=== PATIENT | male | born 1930 | race Caucasian/White ===

== ENCOUNTER 2021-02-01 12:08 | Emergency (ER) | payer MEDICARE ==
[~2021-02-01] VITALS: Ht 170.2 cm; Wt 70.0 kg
[2021-02-01] MEDS ORDERED: AMIO100T4 PO (12:32)
[2021-02-01 12:50] LABS: BASO # 0.1 x10^3/uL (0.0-0.2); BASO % 1 % (0-3); EOS # 0.3 x10^3/uL (0.0-0.7); EOS % 3 % (0-3); HEMATOCRIT 41.3 % (39.0-53.0); HEMOGLOBIN 13.8 g/dL (13.0-17.5); LYMPH # 1.4 x10^3/uL (1.0-4.8); LYMPH % 15 % (24-48); MEAN CORPUSCULAR HEMOGLOBIN 32 pg (25-35); MEAN CORPUSCULAR HGB CONC 33 g/dL (31-37); MEAN CORPUSCULAR VOLUME 96 fL (79-100); MONO # 1.1 x10^3/uL (0.0-1.1); MONO % 11 % (0-9); NEUT # 6.7 x10^3uL (1.8-7.7); NEUT % 70 % (31-73); PLATELET COUNT 193 x10^3/uL (140-400); RED BLOOD COUNT 4.29 x10^6/uL (4.30-5.70); RED CELL DISTRIBUTION WIDTH 18.5 % (11.5-14.5); WHITE BLOOD COUNT 9.5 x10^3/uL (4.0-11.0)
--- NOTE | 2021-02-01 12:55 | PHYS DOC ---
Past History Past Medical History: A-Fib, GERD, High Cholesterol, Hypertension, Renal Failure, Vascular Disease, Other Additional Past Medical Histor: Pulmonary hypotension, Nstemi, CHF, CAD, benigh prostatic hyperplasia, Alcohol Use: None General Adult EDM: Chief Complaint: CHEST PAIN HPI: HPI: Patient is a 89-year-old male presents with chest pain started at 9 PM last night while he was sitting in his chair watching TV. Patient reports the pain was an achy, pain in the middle of his chest. Patient denies radiation. Patient denies nausea/vomiting, dizziness, fever, shortness of breath, cough. Patient states that the chest pain was intermittent until 9 AM this morning. Patient states "my home health nurse came in when I told her about my symptoms she called an ambulance even though my chest pain had resolved". Patient was given 324 of aspirin with EMS. Denies taking anything for pain at home. Patient reports he had an VT in July and started dialysis 2 months ago after a separate hospitalization in October. Patient denies all symptoms at this time. Patient has history of A. fib, hypertension, renal failure, GERD, VT. Review of Systems: Review of Systems: Constitutional: Denies fever or chills Eyes: Denies change in visual acuity HENT: Denies nasal congestion or sore throat Respiratory: Denies cough or shortness of breath Cardiovascular: Denies chest pain or edema GI: Denies abdominal pain, nausea, vomiting, bloody stools or diarrhea : Denies dysuria Musculoskeletal: Denies back pain or joint pain Integument: Denies rash Neurologic: Denies headache, focal weakness or sensory changes Endocrine: Denies polyuria or polydipsia Lymphatic: Denies swollen glands Psychiatric: Denies depression or anxiety Allergies: Allergies: Allergies Coded Allergies Type Severity Reaction Last Updated Verified allopurinol Allergy Unknown 02/01/21 Yes hydrocodone Allergy Unknown 02/01/21 Yes niacin Allergy Unknown 02/01/21 Yes Physical Exam: PE: Constitutional: Well developed, well nourished, no acute distress, non-toxic appearance. HENT: Normocephalic, bilateral external ears normal, oropharynx moist Eyes: PERRLA, conjunctiva normal, no discharge. Neck: Normal range of motion, no tenderness, supple, no stridor. Cardiovascular:Heart rate regular rhythm, no murmur Lungs & Thorax: Bilateral breath sounds clear to auscultation Abdomen: Bowel sounds normal, soft, no tenderness Skin: Warm, dry, no erythema, no rash. Back: No tenderness, no CVA tenderness. Extremities: No tenderness, no cyanosis, no clubbing, ROM intact, no edema. Neurologic: Alert and oriented X 3, normal motor function, normal sensory f unction, no focal deficits noted. Psychologic: Affect normal, judgement normal, mood normal. Current Patient Data: Vital Signs: Vital Signs Date Time Temp Pulse Resp B/P (MAP) Pulse Ox O2 Delivery O2 Flow Rate FiO2 02/01/21 12:13 97.6 83 13 93 Room Air EKG: EKG: [] Radiology/Procedures: Radiology/Procedures: []Single AP view of the chest. Comparison: None. Indication: Chest pain Findings: Right internal jugular hemodialysis catheter seen with tip in the right atrium. The heart is enlarged. There is no pneumothorax or effusion. There is mild pulmonary vascular congestion. Impression: 1. Cardiomegaly with mild pulmonary vascular congestion. Electronically signed by: Pepe Arellano MD (02/01/2021 12:59 PM) [id number] Heart Score: C/O Chest Pain: Yes HEART Score for Chest Pain: HEART Score for Chest Pain Response (Comments) Value History Highly Suspicious 2 ECG Normal 0 Age > 65 2 Risk Factors >3 Risk Factors or Hx CAD 2 Troponin < Normal Limit 0 Total 6 Risk Factors: Risk Factors: DM, Current or recent (<one month) smoker, HTN, HLP, family history of CAD, obesity. Risk Scores: Score 0 - 3: 2.5% MACE over next 6 weeks - Discharge Home Score 4 - 6: 20.3% MACE over next 6 weeks - Admit for Clinical Observation Score 7 - 10: 72.7% MACE over next 6 weeks - Early Invasive Strategies Course & Med Decision Making: Course & Med Decision Making Pertinent Labs and Imaging studies reviewed. (See chart for details) [] 89-year-old male presents with mid, sternal, chest pain that started at 9 PM last night. Pain was intermittent until 9 AM this morning. Patient denied dizziness, shortness of breath, nausea/vomiting at the time of symptoms. Patient was given 324 of aspirin with EMS. Patient denies all symptoms at this time. Patient had an VT in July, and was started on dialysis in October. Troponin is negative. Heart score of 6. Creatinine 2.5, patient receives dialysis on Friday, Friday, Friday. BNP was 1308. Chest x-ray shows cardiomegaly with mild pulmonary vascular congestion. Spoke with who will accept patient at [facility] for chest pain. Cardiology and nephrology will be consulted. Prior to admission patient decided he did not want to stay in the hospital. I spoke with patient extensively about risk of going home and benefit of admission. Patient is still refusing to be admitted and wants to sign AMA paperwork. Dr. Rojas also spoke with patient prior to him leaving AMA and patient is unwilling to stay in the hospital for further evaluation. Patient is alert and oriented and hemodynamically stable. Dragon Disclaimer: Dragon Disclaimer: This electronic medical record was generated, in whole or in part, using a voice recognition dictation system. Departure Departure: Impression: Primary Impression: Chest pain Qualified Codes: R07.89 - Other chest pain Additional Impression: Presence of cardiac pacemaker Disposition: LEFT AGAINST MEDICAL ADVICE Admitting Physician: Jose Mcfadden Condition: STABLE MICHAEL ARANGO [employer] OPERATOR Feb 01, 2021 12:55
--- NOTE | 2021-02-01 13:02 | RAD ---
Single AP view of the chest. Comparison: None. Indication: Chest pain Findings: Right internal jugular hemodialysis catheter seen with tip in the right atrium. The heart is enlarged . There is no pneumothorax or effusion. There is mild pulmonary vascular congestion. Impression: 1. Cardiomegaly with mild pulmonary vascular congestion. Electronically signed by: Pepe Arellano MD (02/01/2021 12:59 PM) [id number]
[2021-02-01 13:15] LABS: CALCIUM 9.1 mg/dL (8.5-10.1); CREATININE 2.5 mg/dL (0.7-1.3); GFR 24.5; POTASSIUM 4.5 mmol/L (3.5-5.1)
[2021-02-01 13:31] LABS: ALBUMIN 3.4 g/dL (3.4-5.0); MAGNESIUM 1.8 mg/dL (1.8-2.4); TOTAL BILIRUBIN 0.5 mg/dL (0.2-1.0); TOTAL PROTEIN 6.8 g/dL (6.4-8.2)
[2021-02-01 14:30] VITALS: BP 132/62
[2021-02-01 15:26] LABS: PLT ESTIMATE ADEQUATE (ADEQUATE)
--- NOTE | 2021-02-02 06:22 | EKG ---
[address] [address] Test Date: 2021-02-01 Test Time: 12:16:38 Pat Name: GEOVANNI HURLEY Department: Room: Gender: M Instructor Of Nursing: AMARILYS : [id number] Requested By: MICHAEL ARANGO Order Number: [id number] Reading MD: Measurements Intervals [place] Rate: 72 P: 31 MI: 150 QRS: 2 QRSD: 112 T: 76 QT: 434 QTc: 477 Interpretive Statements SINUS RHYTHM LEFT ATRIAL ABNORMALITY LOW LIMB LEAD VOLTAGE ST & T ABNORMALITY, CONSIDER HIGH LATERAL ISCHEMIA OR LEFT VENTRICULAR STRAIN ABNORMAL ECG RI6.02 No previous ECG available for comparison
== END 2021-02-01 13:42 | disposition left against medical advice (07) ==
LOC: ER 12:08
DX: R07.89 Other chest pain (principal); K21.9 Gastro-esophageal reflux disease without esophagitis; I10 Essential (primary) hypertension; Z95.0 Presence of cardiac pacemaker; Z88.8 Allergy status to other drugs, medicaments and biological substances
CPT/HCPCS: 36415; 71045; 80053; 82550; 83735; 83880; 84484; 85025; 85610; 85730; 93005; 99285-25